=== PATIENT | female | born 1975 | race Asian ===

== ENCOUNTER 2019-02-24 10:58 | Emergency (ER) | payer MEDICAID ==
[~2019-02-24] VITALS: Ht 160 cm; Wt 59.9 kg
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
[2019-02-24 11:54] VITALS: BP 121/72
--- NOTE | 2019-02-24 14:00 | NUR ---
ED Nurse Note: translation provided with [id number] ID [id number]
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
[2019-02-24] MEDS ORDERED: IBUPROFEN600 MG ORAL (14:23)
[2019-02-24 14:27] VITALS: BP 121/72
--- NOTE | 2019-02-24 14:28 | NUR ---
ER DISCHARGE NOTE: Patient is cleared to be discharged per [facility] pt is aox4, on room air, with stable vital signs. pt was given dc and prescription instructions, pt was able to verbalize understanding, pt id band removed without complications. pt is able to ambulate with steady gait. pt took all belongings.
== END 2019-02-24 14:27 | disposition home or self-care (01) ==
LOC: EDBD 10:58 → EMR 11:48
DX: S00.93XA Contusion of unspecified part of head, initial encounter (principal); V43.52XA Car driver injured in collision with other type car in traffic accident, initial encounter; Y92.410 Unspecified street and highway as the place of occurrence of the external cause
CPT/HCPCS: 70450; Z7502; 99284